=== PATIENT | male | born 1980 | race Caucasian/White ===

== ENCOUNTER 2023-10-31 19:13 | Emergency (ER) | payer SELFPAY ==
[2023-10-31 19:14] VITALS: BP 136/106; PULSE 130; RESP 18; TEMP 36.4; O2SAT 97
[2023-10-31 19:17] VITALS: BMI 25.3
--- NOTE | 2023-10-31 19:37 | CT_ITS ---
EXAM: CT HEAD WITHOUT INTRAVENOUS CONTRAST CLINICAL INDICATION: confusion TECHNIQUE: Multiple axial images were obtained of the head without intravenous contrast. This CT exam was performed using one or more of the following dose reduction techniques: automated exposure control, adjustment of the mA and/or kV according to patient size, and/or use of iterative reconstruction technique. RADIATION DOSE: CTDIvol = 44.99 mGy, DLP = 812.98 mGy-cm COMPARISON: No relevant prior studies available. FINDINGS: BRAIN AND EXTRA-AXIAL SPACES: Encephalomalacia of the right temporal lobe. No intra- or extra-axial hemorrhage. No evidence of acute infarct. No intracranial mass or mass effect. There is preservation of the wagner/white matter interface. Posterior fossa structures are unremarkable. Ventricles are appropriate for age. No hydrocephalus. Basal cisterns are patent. BONES/JOINTS: There is a right temporal parietal craniotomy/craniectomy. No discrete lytic or blastic abnormalities. SINUSES: There is sinus disease. MASTOID AIR CELLS: Unremarkable. Clear. ORBITS: Visualized globes, extraocular muscles, optic nerves and retrobulbar fat appear unremarkable. CT/Brain/Head without Contrast IMPRESSION: There is sinus disease. Electronically Signed: Guillermo Almonte MD at 20:37 EDT ,
--- NOTE | 2023-10-31 19:52 | EX.ED.VIS.PS ---
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 Patient was unsure how he got there. He stated that [facility] [place]. He told law enforcement that all he wanted to do was talk to his sister before his mental state collapsed. Patient has never been seen here before. I was able to review records and [facility]. He was seen in the emergency room at [facility] yesterday. At that time he was found in the [employer] drive-through. He told EMS that he just wanted to be hit by a car and have his legs run over because he went to sleep. He told them at that time that he had been walking greater than 28 miles in the last 48 hours. At that time he told them he had 2 alcoholic drinks around 6 PM. It appears that they observed him and let him sleep and metabolize his alcohol. I do not see an EtOH level drawn. Previous records from 2020 are reviewed from [facility] in [place]. At that time he had been transferred from [place] with a traumatic brain injury. He did require a right-sided cranioplasty. [facility] Medical History HTN (hypertension) Seizure Home Medications fexofenadine 60 mg tablet (Shannon Allergy) 60 mg PO Q24H 10/31/23 [History Last Taken 10/31/23] Allergy/AdvReac Type Severity Reaction Status Date / Time No Known Allergies Allergy Verified 10/31/23 19:17 Surgical History H/O craniotomy H/O shoulder surgery Social History Smoking Status: Current every day smoker tobacco type: cigarettes ROS ROS ED ROS Narrative Patient confused and only answering some questions. He talks about trying to maintain his sanity and holding onto his last clear thought. He will occasionally bring up different sikhism topics. Review of Systems ROS Unobtainable: due to mental status EXAM Physical Exam Const Vital Signs: 10/31/23 19:14 10/31/23 20:36 Temperature 97.5 F L Temperature Source Oral Pulse Rate 130 H 110 H Respiratory Rate 18 17 Blood Pressure 136/106 H 151/103 H Blood Pressure Mean 116 119 Pulse Ox 97 96 Oxygen Delivery Method Room Air Room Air Positive well nourished, well developed and unkempt General Appearance ED: unkempt and well developed HEENT HEENT Narrative: Old healed surgical scar to the right frontal scalp. Eyes EOMs intact bilaterally Resp normal respiratory effort and clear to auscultation bilaterally Cardio Rate: regular rate Rhythm: regular rhythm GI non-tender Palpation: soft Extremity normal to inspection Neuro Neuro Narrative: Patient is alert to himself. He does not answer questions about where he is or how he got to [place]. He moves all 4 extremities without difficulty. Psych Appearance: unkempt Attitude: calm and evasive Speech: soft Mood & Affect: labile affect Thought Process: disorganized and confused Attention / Concentration: concentration grossly impaired MDM MDM MDM Narrative Medical decision making narrative: Labwork for psychiatric clearance will be obtained. Urine tox screen ordered. Given his history of prior intracranial injury with confusion today we will obtain a head CT. Lab Data Attestation: I reviewed the patient's lab results. Labs: Laboratory Results - last 24 hr 10/31/23 20:05 WBC 16.0 H RBC 4.83 Hgb 15.1 Hct 43.5 MCV 90.1 MCH 31.3 MCHC 34.7 RDW Std Deviation 41.6 RDW Coeff of Daryn 12.6 Plt Count 281 MPV 10.8 Immature Gran % (Auto) 0.300 Neut % (Auto) 84.5 H Lymph % (Auto) 8.8 L [place] % (Auto) 5.8 Eos % (Auto) 0.3 Baso % (Auto) 0.3 Absolute Neuts (auto) 13.6 H Absolute Lymphs (auto) 1.40 Nucleated RBC % 0 Sodium 139 Potassium 3.8 Chloride 108 H Carbon Dioxide 26.0 Anion Gap 5 BUN 13 Creatinine 1.08 Estim Creat Clear Calc 90.12 Est GFR (MDRD) Af Amer 95 Est GFR (MDRD) Non-Af 79 BUN/Creatinine Ratio 12.0 Glucose 108 H Calcium 9.4 Total Bilirubin 1.30 H Direct Bilirubin 0.34 H AST 32 ALT 25 Alkaline Phosphatase 85 Total Protein 7.7 Albumin 4.2 Globulin 3.5 Ethyl Alcohol < 3.0 Radiography Diagnostic Testing: Clinical Impression(s) from Imaging Studies Brain CT 10/31/23 19:37 IMPRESSION: There is sinus disease. Electronically Signed: Guillermo Almonte MD at 20:37 EDT , Treatment and Re-Evaluation Narrative: CBC was a white count of 16,000 with 84% neutrophils. Hemoglobin is normal at 15. Chemistry studies are unremarkable with normal renal function. Total bilirubin is slightly elevated at 1.3 and direct bilirubin is 0.34. Remainder of LFTs are unremarkable. EtOH is less than 3. CT scan of the head reveals sinus disease with prior chronic postoperative changes. No acute findings noted. Patient is been cooperative during our observation time at this point. He has not yet provided a urine sample for urine tox screen. Once this is obtained we will contact crisis for evaluation. Discharge Plan Triage Chief Complaint: Mental Health ED Provider: Jacquelyn Patiño Dx/Rx/DC Orders Prescriptions: No Action fexofenadine [Shannon Allergy] 60 mg tablet 60 mg PO Q24H Primary Care Provider: Care Physician,No Primary Referrals: Care Physician,No Primary [Primary Care Provider] -
[2023-10-31 20:16] LABS: Absolute Neutrophil Count 13.6 X10^3/uL (2.0-7.7); Basophil# 0.04 X10^3/uL; Basophil% 0.3 % (0-1); Eosinophil# 0.04 X10^3/uL; Eosinophils% 0.3 % (0-5); Hematocrit 43.5 % (40-54); Hemoglobin 15.1 g/dL (13.0-16.5); Lymphocyte % 8.8 % (19-41); Mean Corp Hgb Conc 34.7 g/dL (32-36); Mean Corpuscular Hgb 31.3 pg (27.0-32.0); Mean Corpuscular Volume 90.1 fL (80-94); Mean Platelet Vol. 10.8 fl (6.2-12.0); Monocyte# 0.92 X10^3/uL; Monocyte% 5.8 % (0-10); NRBC Flagged by Analyzer 0 % (0-5); Neutrophil # 13.56 X10^3/uL (2.7-7.7); Neutrophil % 84.5 % (47-70); Platelet Count 281 K/mm3 (150-450); RBC Distribution Width CV 12.6 % (11.6-14.6); RBC Distribution Width SD 41.6 fl (35.1-43.9); Red Blood Count 4.83 M/mm3 (4.6-6.2)
[2023-10-31 20:31] LABS: Alcohol, Blood (Medical)-Serum < 3.0 mg/dL
[2023-10-31 20:34] LABS: AST(SGOT) 32 U/L (15-37); Alanine Aminotransfer ALT/SGPT 25 U/L (16-61); Albumin, Serum 4.2 g/dL (3.2-5.0); Alkaline Phosphatase 85 U/L (45-117); Anion Gap 5 (5-15); BUN 13 mg/dL (7-18); Bilirubin, Direct 0.34 mg/dL (0.00-0.30); Calcium,Total 9.4 mg/dL (8.5-10.1); Chloride 108 mmol/L (98-107); Creatinine, Serum 1.08 mg/dL (0.70-1.30); EST Glomerular Filtration Rate 79 mL/min (>60); Est Glom Filt Rate - Afr Amer 95 mL/min (>60); Estimated Creatinine Clearance 90.12 ml/min; Globulin 3.5 g/dL (2.2-4.2); Glucose 108 mg/dL (74-106); Potassium 3.8 mmol/L (3.5-5.1); Protein, Total 7.7 g/dL (6.4-8.2); Sodium Level 139 mmol/L (136-145)
[2023-10-31 20:36] VITALS: BP 151/103; PULSE 110; RESP 17; O2SAT 96
[2023-10-31 22:43] LABS: Amphetamine Urine VISTA POSITIVE (<1000 ng/mL); Barbiturate Urine VISTA NEGATIVE (< 200 ng/mL); Benzodiazepine Urine VISTA NEGATIVE (< 200 ng/mL); Cocaine Urine VISTA NEGATIVE (< 300 ng/mL); Ecstacy Urine VISTA POSITIVE (< 500 ng/mL); Methadone Urine VISTA NEGATIVE (< 300 ng/mL); PCP Urine VISTA NEGATIVE (< 25 ng/mL); THC Urine VISTA POSITIVE (< 50 ng/mL); Vista UDS pH Range 5
[2023-11-01 02:07] VITALS: BP 150/79; PULSE 96; RESP 16; TEMP 36.6; O2SAT 97
--- NOTE | 2023-11-01 02:27 | ED.RN ---
[facility] HAS REFERRED PT TO [facility]
--- NOTE | 2023-11-01 04:19 | ED.RN ---
PT WAS REFERRED TO [facility] AND [facility]. HOWEVER, CRISIS HAS TO VERIFY BILLING/FUNDING BEFORE HE CAN BE ACCEPTED. AND THE WAY TO DO THAT IS THEY HAVE TO FIGURE OUT WHERE HE LIVES. CRISIS CALLED AT [id number] TO KEEP US UPDATED. THEY SAID THEY HAVE TO FIND THE COUN[place] OF RESIDENCE OF THE PT AND BECAUSE THE PT TOLD THE SPECIAL PROCEDURES TECH DURING HIS EVALUATION THAT HE WAS ON PROBATION IN [facility]. BREEZY TRIED TO CALL THE SKIRT TRIMMER OFFICE TO SEE IF HE WAS IN FACT ON PROBATION BUT THE SKIRT TRIMMER ARE UNABLE TO SEE/DETERMINE THAT. SO, [facility] HAS TO WAIT UNTIL THE PROBATION OFFICE OPENS AT 7AM. THE GOOD NEWS IS THAT THE REFERRING FACILITIES ARE HOLDING THE PT'S INFORMATION SO ONCE FUNDING GETS FIGURED OUT THE ACCEPTANCE PROCESS SHOULD GO PRETTY QUICKLY.
[2023-11-01 04:43] VITALS: PULSE 96; RESP 17; TEMP 36.7; O2SAT 96
[2023-11-01 08:00] VITALS: BP 129/76; PULSE 65; RESP 15; TEMP 36.1; O2SAT 97
--- NOTE | 2023-11-01 09:18 | ED.RN ---
Mavis from [facility] called, address from pt given to [facility] is a homeless usp, not a real address. Unfortunately getting no where with probation, only getting forwarded to other offices with no answers. Mavis waiting for Gaby to give advice or instruction on next step since pt is indigent and has no ins.
--- NOTE | 2023-11-01 09:52 | ED.RN ---
PT ACCEPTED AT [facility], [id number] [phone]. PHYSICIANS CALLED FOR TRANSPORT.
[2023-11-01 10:40] VITALS: BP 127/88; PULSE 76; RESP 15; TEMP 36.2; O2SAT 99
== END 2023-11-01 10:45 ==
LOC: ED 20:00
PROVIDERS: Emergency Provider Emergency Medicine; Visit Provider Emergency Medicine
DX: Z04.6 Encounter for general psychiatric examination, requested by authority (principal); I10 Essential (primary) hypertension; Z79.899 Other long term (current) drug therapy; F17.210 Nicotine dependence, cigarettes, uncomplicated; Z87.820 Personal history of traumatic brain injury
CPT/HCPCS: 70450; 80048; 80076; 80307; 80320; 85025; 99284; A4216; G0480